=== PATIENT | male | born 1970 | race Caucasian/White ===

== ENCOUNTER 2019-07-29 11:52 | Emergency (ER) | payer MEDICAID, OTHER ==
[~2019-07-29] VITALS: Ht 182.9 cm; Wt 90.7 kg
[2019-07-29 11:55] VITALS: BP 133/80
[2019-07-29] MEDS ORDERED: ACETAMINOPHEN/CODEINE#3 (300/30mg) TAB PO ONE (13:30)
== END 2019-07-29 13:44 | disposition home or self-care (01) ==
LOC: ER 11:52
DX: R07.81 Pleurodynia (principal)
CPT/HCPCS: 71101